=== PATIENT | female | born 1970 | race Two or more races ===

== ENCOUNTER 2018-02-21 02:21 | Emergency (ER) | payer BC, SELFPAY ==
[2018-02-21 02:23] VITALS: BP 120/50; PULSE 72; RESP 18; TEMP 36.9; O2SAT 96; BMI 25.7
--- NOTE | 2018-02-21 02:34 | CT_ITS ---
STUDY: CT ABDOMEN AND PELVIS WITHOUT CONTRAST REASON FOR EXAM: Female, 47 years old. Right flank pain RADIATION DOSAGE (If Supplied By Facility): CTDIvol = ( 6.50 ) mGy, DLP = ( 323.35 ) mGycm TECHNIQUE: Transaxial images were obtained from the dome of the diaphragm to the symphysis pubis without oral contrast, and without intravenous contrast. Sagittal and coronal images were reconstructed. Individualized dose optimization techniques were used for this CT. COMPARISON: None. FINDINGS: The visualized lung bases are unremarkable. The visualized portions of the heart are within normal limits. Normal liver. Normal gallbladder and extrahepatic biliary system. Normal spleen. Normal pancreas. Normal bilateral adrenal glands. Mild right hydroureteronephrosis. No underlying obstructing ureter stone is seen. Normal left kidney. Normal visualized stomach. Normal small intestine. Normal colon. The appendix is visualized and appears normal. Normal abdominal aorta. Normal inferior vena cava. Normal retroperitoneum. Normal urinary bladder. Normal abdominal wall. Normal osseous structures. CT/Abdomen/Pelvis without Cont IMPRESSION: Mild right hydroureteronephrosis. No underlying obstructing ureter stone is seen. Electronically Signed: Niranjan Kirkland MD at 3:36 EDT Tel , Service support ,
[2018-02-21] MEDS: Ketorolac 30 MG/ML Syringe IV (02:42)
[2018-02-21] MEDS: 0.9% Normal Saline 1,000 ML 1000 ML IV (02:42)
[2018-02-21] MEDS: Ondansetron 4 MG/2 ML Vial IV (02:42)
[2018-02-21 02:47] LABS: Absolute Lymphocyte Count 1.67 X10^3/ul (0.83-4.51); Basophil# 0.02 X10^3/uL; Basophil% 0.2 % (0-1); Eosinophil# 0.15 X10^3/uL; Eosinophils% 1.6 % (0-5); Hematocrit 38.3 % (37-47); Hemoglobin 12.3 g/dl (12.0-15.0); Lymphocyte # 1.67 X10^3/ul (4.0); Lymphocyte % 17.4 % (19-41); Mean Corp Hgb Conc 32.1 g/gl (32-36); Mean Corpuscular Hgb 27.9 pg (27.0-32.0); Mean Corpuscular Volume 86.8 fL (81-99); Mean Platelet Vol. 9.6 fl (6.2-12.0); Monocyte# 0.74 X10^3/uL; Monocyte% 7.7 % (0-10); Neutrophil # 7.02 X10^3/uL (2.7-7.7); POSITIVE COUNT NO; POSITIVE DIFFERENTIAL NO; POSITIVE MORPHOLOGY NO; Platelet Count 231 K/mm3 (150-450); RBC Distribution Width CV 14.6 % (11.6-14.6); RBC Distribution Width SD 46.4 fl (35.1-43.9); Red Blood Count 4.41 M/mm3 (4.2-5.4); White Blood Count 9.6 K/mm3 (4.4-11.0)
[2018-02-21 02:49] LABS: Mucous, Urine 0 SEEN /hpf (<or=2+)
[2018-02-21 02:51] LABS: Color, Urine SEE COMMENT BELOW (Yellow); Glucose, Dipstick Normal (Normal); Ketone-Dipstick Negative (Negative); Leukocyte Esterase-Dipstick 500 /ul (Negative); Nitrite-Dipstick Positive (Negative); Occult Blood-Urine 250 /ul (Negative); Protein-Dipstick 100 mg/dl (Negative); Urine Bilirubin Dipstick 3 mg/dL (Negative); Urine Clarity Turbid (Clear); Urine Urobilinogen 4 mg/dl (Normal)
[2018-02-21 02:52] LABS: Internal QC Validated? YES +Cl - CLEAR BKGD; Pregnancy, Urine Negative Negative
[2018-02-21 02:57] LABS: Bacteria 2+ /hpf (None Seen); Red Blood Cells-Urine 50-100 SEEN /hpf (0-5); Squamous Epithelial Cells - UA 5-10 SEEN /hpf (5-10); White Blood Cells 50-100 SEEN /hpf (0-5)
[2018-02-21 02:57] LABS: BUN 16 mg/dL (7-18); Calcium,Total 8.8 mg/dL (8.5-10.1); Chloride 102 mmol/L (98-107); Creatinine, Serum 0.89 mg/dL (0.55-1.02); EST Glomerular Filtration Rate 72 mL/min (>60); Est Glom Filt Rate - Afr Amer 87 mL/min (>60); Estimated Creatinine Clearance 81.67 ml/min; Glucose 114 mg/dL (74-106); Potassium 3.9 mmol/L (3.5-5.1); Sodium Level 140 mmol/L (136-145)
[2018-02-21 02:58] LABS: Anion Gap 12 (5-15)
--- NOTE | 2018-02-21 03:48 | ED.DCSUM_ITS ---
- ER Visit Summary Date of Service: 02/21/18 Chief Complaint: UTI History of Present Illness: The patient is a 47 F with UTI symptoms on and off for the past 4 days. Patient has suprapubic pain with burning with urination and blood in her urine. Also reports right flank pain. Denies any vaginal bleeding or discharge. She does have a history of kidney stones. Her pain has been severe and intermittent. No fevers, but does report some nausea. No other GI symptoms. Physical Examination: Vital signs unremarkable. Afebrile. Alert and oriented. No acute distress. Appears uncomfortable however. Heart regular rate and rhythm. Lungs clear. Abdomen soft and nontender. Back is nontender. Skin appears normal. Test Results: CBC and BMP unremarkable. Urinalysis shows signs of infection and blood. Cultures pending. test was negative. CT showed a mild right hydroureteronephrosis but no sign of stone. Emergency Department Course and Treatment: Patient has a history of stones and presents with fairly sudden onset and intermittent pain concerning for a recurrent stone. She definitely has a urinary tract infection signs and symptoms. Her workup showed a definite infection. Cultures are pending. She was treated with Keflex. She also received fluids, Zofran, and Toradol. She felt better on reevaluation. Patient will be discharged to follow-up with her primary care doctor. She was given a prescription for Keflex and Zofran. Declined opioid medications. Return for any new or worsening issues. Treatment Plan: As above Disposition: Discharged Impression: 1. UTI right pyelonephritis This note was generated with [employer] dictation software. It may contain incorrect words, spelling, and punctuation that were not noted in review of the chart prior to signing ED Disposition - Plan for ED Patient: Chief Complaint: Complaint Referrals: Sierra Rosa MD [Primary Care Provider] -
--- NOTE | 2018-02-21 03:48 | ED.DEP ---
ED Disposition - Plan for ED Patient: Chief Complaint: Complaint Instructions: ED Kidney Infec Female Prescriptions: Ondansetron [Zofran Odt] 4 mg PO Q8H PRN PRN #10 tab PRN Reason: Nausea Cephalexin [Keflex] 500 mg PO Q6 #40 cap Referrals: Sierra Rosa MD [Primary Care Provider] -
[2018-02-21] MEDS: Cephalexin 250 MG Capsule 500 MG PO (03:59)
[2018-02-21 04:06] VITALS: RESP 16
== END 2018-02-21 04:06 | disposition home or self-care (01) ==
PROVIDERS: Emergency Provider Emergency Medicine; Family Provider Internal Medicine; PCP Internal Medicine
DX: N39.0 Urinary tract infection, site not specified (principal); N12 Tubulo-interstitial nephritis, not specified as acute or chronic; Z87.442 Personal history of urinary calculi; Z87.440 Personal history of urinary (tract) infections; Z79.899 Other long term (current) drug therapy
CPT/HCPCS: 74176; 80048; 81001; 81025; 85025; 87077; 87086; 87088; 87186; 96361; 96374; 96375; 99284; J7030; A4216; J2405